=== PATIENT | male | born 1945 ===

== ENCOUNTER 2024-06-05 17:03 | Inpatient (IN) | payer MEDICARE, MEDICAID ==
[~2024-06-05] VITALS: Ht 175.3 cm; Wt 75.7 kg
[2024-06-05] MEDS: LORazepam 2 MG/ML VIAL IM ONE (20:22)
[2024-06-05] MEDS: DiphenhydrAMINE HCL 50 MG/ML VIAL IM ONE (20:23)
[2024-06-05] MEDS: HALOPERIDOL LACTATE 5 MG/ML VIAL IM ONE (20:23)
[2024-06-05 21:08] LABS: BASOPHILS % (AUTO) 0.4 % (0.0-2.0); EOSINOPHILS % (AUTO) 2.3 % (1.0-6.0); HEMATOCRIT 39.9 % (41-53); HEMOGLOBIN 13.1 g/dL (13.5-17.5); LYMPHOCYTES # (AUTO) 1.5 K/uL (1.0-4.8); LYMPHOCYTES % (AUTO) 21.2 % (22.0-44.0); MEAN CORPUSCULAR HEMOGLOBIN 31.2 pg (26.0-34.0); MEAN CORPUSCULAR HGB CONC 32.8 G/dL (31.0-37.0); MEAN CORPUSCULAR VOLUME 95 fL (80-100); MONOCYTES # (AUTO) 0.7 K/uL (0.1-1.0); MONOCYTES % (AUTO) 9.6 % (2.0-9.0); NEUTROPHILS # (AUTO) 4.6 K/uL (1.8-7.7); NEUTROPHILS % (AUTO) 66.5 % (40.0-70.0); PLATELET COUNT (AUTO) 165 K/uL (150-450); RED CELL DISTRIBUTION WIDTH 14.7 % (11.5-14.5); WHITE BLOOD COUNT (AUTO) 6.9 K/uL (4.5-11.0)
[2024-06-05 21:18] LABS: ANION GAP 10 mmol/L (8-16); CALCIUM, TOTAL 8.8 mg/dL (8.8-10.5); CARBON DIOXIDE 25 mmol/L (22-29); CHLORIDE 105 mmol/L (98-107); GLOMERULAR FILTR. RATE CALC 58 mL/min (>60); GLUCOSE,RANDOM 93 mg/dL (70-110); POTASSIUM 3.9 mmol/L (3.5-5.1); SODIUM SERUM 140 mmol/L (136-145); UREA NITROGEN, BLOOD 32 mg/dL (7-18)
[2024-06-05 21:18] LABS: COVID AG,FIA SOURCE NASAL SWAB
[2024-06-05 21:27] LABS: ALCOHOL, BLOOD (SERUM) < 3 mg/dL (0-10)
[2024-06-05 21:38] LABS: SARS-COV2 (COVID) ANTIGEN,FIA Negative (Negative)
[2024-06-05] MEDS ORDERED: ZOLPIDEM TARTRATE 10 MG TABLET PO PRN (22:00)
[2024-06-05] MEDS ORDERED: LORazepam 2 MG TABLET PO PRN (22:00)
[2024-06-06] MEDS: DIVALPROEX SODIUM 500 MG ER TABLET PO SCH (08:48)
[2024-06-06] MEDS: LORazepam 1 MG TABLET PO PRN (15:23)
[2024-06-06 15:42] LABS: APPEARANCE,URINE CLEAR (CLEAR); BILIRUBIN,URINE NEGATIVE (NEGATIVE); COLOR,URINE LIGHT YELLOW (YELLOW); GLUCOSE, URINE (UA) NEGATIVE (NEGATIVE); KETONES,URINE NEGATIVE (NEGATIVE); LEUKOCYTE ESTERASE ,URINE NEGATIVE (NEGATIVE); NITRATE,URINE NEGATIVE (NEGATIVE); OCCULT BLOOD,URINE NEGATIVE (NEGATIVE); PROTEIN,URINE NEGATIVE (NEGATIVE); SPECIFIC GRAVITIY, URINE 1.019 (1.003-1.030); UROBILINOGEN,URINE <=1.0 mg/dL (<=1.0)
[2024-06-06 15:50] LABS: ALCOHOL, URINE DRUG SCREEN NEGATIVE (NEGATIVE); AMPHET/METH SCREEN,URINE NEGATIVE (NEGATIVE); BARBITURATE SCREEN, URINE NEGATIVE (NEGATIVE); BENZODIAZEPINES SCREEN,URINE NEGATIVE (NEGATIVE); CANNABINOID SCREEN,URINE NEGATIVE (NEGATIVE); COCAINE SCREEN,URINE NEGATIVE (NEGATIVE); METHADONE SCREEN, URINE NEGATIVE (NEGATIVE); OPIATE SCREEN,URINE NEGATIVE (NEGATIVE); PHENCYCLIDINE SCREEN,URINE NEGATIVE (NEGATIVE)
[2024-06-06] MEDS: OLANZapine 5 MG RAPDIS TABLET SL SCH (20:14)
[2024-06-06 21:25] VITALS: BP 149/65; PULSE 64; RESP 19; TEMP 97.8; O2SAT 98
[2024-06-06] MEDS: MELATONIN 5 MG TABLET PO SCH (23:05)
[2024-06-06] MEDS ORDERED: INFLUENZA VIRUS VACCINE TVS (6MO+) 2024-25/PF 45 MCG/0.5 ML SYRINGE IM. ONE (23:45)
[2024-06-07] MEDS: ZOLPIDEM TARTRATE 5 MG TABLET PO PRN (01:56)
[2024-06-07] MEDS: ChlorproMAZINE HCL 100 MG TABLET PO PRN (03:38)
[2024-06-07 08:51] VITALS: BP 141/76; PULSE 64; RESP 18; TEMP 98.1; O2SAT 95
[2024-06-07] MEDS ORDERED: HydrOXYzine PAMOATE 50 MG CAPSULE PO PRN (09:30)
[2024-06-07] MEDS ORDERED: MAGNESIUM HYDROXIDE SUSPENSION 30 ML UDCUP PO PRN (09:30)
[2024-06-07] MEDS ORDERED: MAG HYDROX/ALUMINUM HYD/SIMETH ES 30 ML SUSPENSION UDCUP PO PRN (09:30)
[2024-06-07] MEDS ORDERED: BREXPIPRAZOLE 0.25 MG TABLET PO PRN (09:30)
[2024-06-07] MEDS ORDERED: PROMETHAZINE HCL 25 MG TABLET PO PRN (09:30)
[2024-06-07] MEDS ORDERED: LOPERAMIDE HCL 2 MG CAPSULE PO PRN (09:30)
[2024-06-07] MEDS ORDERED: TUBERCULIN, PURIFIED PROTEIN DERIVATIVE 5 TU/0.1 ML SYRINGE ID ONE (09:30)
[2024-06-07] MEDS ORDERED: GuaiFENesin/D-METHORPHAN [SUGAR-FREE] 200-20MG/10 ML SYRUP UDCUP PO PRN (09:30)
[2024-06-07] MEDS: THIAMINE 100 MG TABLET PO SCH (16:00)
[2024-06-07 20:22] VITALS: BP 163/79; PULSE 75; RESP 18; TEMP 97.2; O2SAT 98
[2024-06-07] MEDS: BREXPIPRAZOLE 0.25 MG TABLET PO SCH (20:44)
[2024-06-07] MEDS ORDERED: MELATONIN 5 MG TABLET PO SCH (21:00)
[2024-06-08 08:51] LABS: HEMOGLOBIN A1C 5.4 % (3.8-5.6)
[2024-06-08 09:06] LABS: CHOL/HDL RATIO 2.1 (4.2-7.3); FREE T4 (FREE THYROXINE) 1.24 ng/dL (0.76-1.46); THYROID STIMULATING HORMONE 2.87 uIU/mL (0.36-3.74)
[2024-06-08] MEDS: FOLIC ACID 1 MG TABLET PO SCH (09:18)
[2024-06-08] MEDS: OMEGA-3/DHA/EPA/FISH OIL 1,000 MG CAPSULE PO SCH (09:18)
[2024-06-08] MEDS: MULTIVITAMINS WITH MINERALS, THERAPEUTIC TABLET PO SCH (09:18)
[2024-06-08 10:08] VITALS: BP 162/97; PULSE 60; RESP 19; TEMP 97.8; O2SAT 98
[2024-06-08 19:07] LABS: APPEARANCE,URINE CLEAR (CLEAR); BILIRUBIN,URINE NEGATIVE (NEGATIVE); COLOR,URINE YELLOW (YELLOW); GLUCOSE, URINE (UA) NEGATIVE (NEGATIVE); LEUKOCYTE ESTERASE ,URINE NEGATIVE (NEGATIVE); NITRATE,URINE NEGATIVE (NEGATIVE); OCCULT BLOOD,URINE SMALL (NEGATIVE); PH,URINE 5.5 (5.0-8.0); PH,URINE DRUG SCREEN 5.5 (5.0-8.0); PROTEIN,URINE TRACE mg/dL (NEGATIVE); UROBILINOGEN,URINE <=1.0 mg/dL (<=1.0)
[2024-06-08 19:16] LABS: ALCOHOL, URINE DRUG SCREEN NEGATIVE (NEGATIVE); AMPHET/METH SCREEN,URINE NEGATIVE (NEGATIVE); BARBITURATE SCREEN, URINE NEGATIVE (NEGATIVE); BENZODIAZEPINES SCREEN,URINE NEGATIVE (NEGATIVE); CANNABINOID SCREEN,URINE NEGATIVE (NEGATIVE); COCAINE SCREEN,URINE NEGATIVE (NEGATIVE); METHADONE SCREEN, URINE NEGATIVE (NEGATIVE); OPIATE SCREEN,URINE NEGATIVE (NEGATIVE); PHENCYCLIDINE SCREEN,URINE NEGATIVE (NEGATIVE)
[2024-06-08 19:20] LABS: BACTERIA,URINE Rare /HPF (None Seen); SQUAMOUS EPITHELIAL CELL,UR Rare /LPF (None Seen)
[2024-06-08 20:01] VITALS: BP 145/83; PULSE 77; RESP 17; TEMP 97.9; O2SAT 95
[2024-06-09 11:03] VITALS: BP 141/78; PULSE 69; RESP 18; TEMP 97.8; O2SAT 98
[2024-06-09 18:53] VITALS: BP 167/80; PULSE 77; RESP 17; TEMP 97.8; O2SAT 96
[2024-06-09] MEDS: ACETAMINOPHEN 325 MG TABLET PO PRN (18:53)
[2024-06-09 21:20] VITALS: BP 153/80; PULSE 77; RESP 15; TEMP 97.1; O2SAT 98
[2024-06-10 09:17] VITALS: BP 157/81; PULSE 68; RESP 18; TEMP 97.1; O2SAT 97
[2024-06-10 21:27] VITALS: BP 144/77; PULSE 71; RESP 18; TEMP 98.1; O2SAT 98
[2024-06-11] MEDS: DULoxetine HCL 20 MG CAPSULE PO SCH (09:07)
[2024-06-11] MEDS ORDERED: MELA5TAB40 PO (09:24)
[2024-06-11] MEDS ORDERED: DIVA-153 PO (09:24)
[2024-06-11] MEDS ORDERED: DULO20CA71 PO (09:24)
[2024-06-11] MEDS ORDERED: BREX0.25 PO (09:24)
[2024-06-11] MEDS ORDERED: OMEG100033 PO (09:24)
[2024-06-11 09:34] VITALS: BP 154/84; PULSE 67; RESP 19; TEMP 97.6; O2SAT 98
== END 2024-06-11 14:10 | DRG 885 ==
LOC: EMS 17:03 → 3EX 06-06 22:55
PROVIDERS: ADMIT Psychiatry & Neurology Psychiatry; ATTEND Psychiatry & Neurology Psychiatry
PROC: GZHZZZZ Group Psychotherapy (ICD-10-PCS; principal; 2024-06-11)
PROC: GZ58ZZZ Individual Psychotherapy, Cognitive-Behavioral (ICD-10-PCS; 2024-06-11)
PROC: GZ56ZZZ Individual Psychotherapy, Supportive (ICD-10-PCS; 2024-06-11)
DX: F33.2 Major depressive disorder, recurrent severe without psychotic features (principal); N18.9 Chronic kidney disease, unspecified; F03.92 Unspecified dementia, unspecified severity, with psychotic disturbance; F20.9 Schizophrenia, unspecified; K59.00 Constipation, unspecified; I12.9 Hypertensive chronic kidney disease with stage 1 through stage 4 chronic kidney disease, or unspecified chronic kidney disease; M19.011 Primary osteoarthritis, right shoulder; M16.0 Bilateral primary osteoarthritis of hip; G47.00 Insomnia, unspecified; Z20.822 Contact with and (suspected) exposure to COVID-19; N40.0 Benign prostatic hyperplasia without lower urinary tract symptoms; K21.9 Gastro-esophageal reflux disease without esophagitis; F03.90 Unspecified dementia, unspecified severity, without behavioral disturbance, psychotic disturbance, mood disturbance, and anxiety; F41.9 Anxiety disorder, unspecified; D64.9 Anemia, unspecified; Z53.20 Procedure and treatment not carried out because of patient's decision for unspecified reasons; Z60.8 Other problems related to social environment; Z55.9 Problems related to education and literacy, unspecified; Z59.9 Problem related to housing and economic circumstances, unspecified; Z63.9 Problem related to primary support group, unspecified; Z65.3 Problems related to other legal circumstances
CPT/HCPCS: 80048; 80061; 80164; 80307; 81001; 81003; 83036; 84439; 84443; 85025; 87081; 97162; 97166; 97535; 99285; 99291; G0378; G0480; J1200; J1630; J2060